=== PATIENT | male | born 1975 | race Caucasian/White ===

== ENCOUNTER 2023-11-09 12:04 | Emergency (ER) | payer BC, SELFPAY ==
[2023-11-09] VITALS (12 sets, daily range): BP systolic 135–149; BP diastolic 98–102; PULSE 84–103; RESP 15–19; TEMP 36.6; O2SAT 96–100
--- NOTE | ~2023-11-09 | XR_ITS ---
Clinical Indication: Hypertension PA and lateral views of the chest: Comparison: None Findings: The lungs are clear, without evidence of focal consolidation or pleural effusion. Cardiome diastinal silhouette is within normal limits. Bones and soft tissues are unremarkable. Impression: Normal chest. Reviewed, dictated and finalized at location . MANAGER Impression: Normal chest.
--- NOTE | 2023-11-09 12:07 | ECG_ITS ---
Measurements Intervals [place] Rate: 103 P: 53 LA: 141 QRS: 82 QRSD: 79 T: 2 QT: 300 QTc: 394 Interpretive Statements SINUS TACHYCARDIA POSSIBLE LEFT ATRIAL ENLARGEMENT NONSPECIFIC ST-T WAVE ABNORMALITY- INFERIOR LEADS BORDERLINE ECG NO PREVIOUS ECG AVAILABLE FOR COMPARISON Electronically Signed On 11-09-2023 12:12:59 CHAMBER MAGISTRATE by Yon Zuluaga D.O.
[2023-11-09 12:29] LABS: Basophils Absolute Auto 0.1 K/mm3 (0.0-0.1); Basophils Percent Auto 0.6 % (0.2-1.2); Eosinophils Absolute Auto 0.1 K/mm3 (0-0.3); Hematocrit 48.3 % (42.0-52.0); Hemoglobin 14.7 g/dL (14.0-18.0); Immature Granulocyte Absolute 0.05 K/mm3 (0.00-0.031); Immature Granulocyte Percent A 0.6 % (0-0.5); Lymphocytes Absolute Auto 1.46 K/mm3 (0.9-3.2); Lymphocytes Percent Auto 16.1 % (18.3-44.2); Mean Corpuscular HGB Conc 30.4 g/dl (32-36); Mean Corpuscular Hemoglobin 24.6 pg (26-34); Mean Corpuscular Volume 80.9 fl (80-100); Mean Platelet Volume 8.3 fl (7.4-10.4); Monocytes Absolute Auto 0.9 K/mm3 (0.1-0.6); Monocytes Percent Auto 9.7 % (2.6-8.5); Neutrophils Absolute Auto 6.5 K/mm3 (1.3-6.7); Platelet Count Result 577 k/mm3 (150-375); Red Blood Count 5.97 M/mm3 (4.6-6.20); Red Cell Distribution Width 19.1 % (11.5-14.5); White Blood Count 9.1 K/mm3 (4.5-10.0)
[2023-11-09 12:39] LABS: INR 0.9; Prothrombin Time 12.7 Seconds (11.1-14.7)
[2023-11-09 12:40] LABS: Partial Thromboplastin Time 23.6 SECONDS (22.3-36.8)
[2023-11-09 12:41] LABS: Alanine Aminotransferase 47 U/L (6-50); Albumin Level 4.4 g/dL (3.5-5.1); Alkaline Phosphatase 51 U/L (38-126); Anion Gap 7 mmol/L (8-16); Aspartate Amino Transferase 57 U/L (17-59); Bilirubin,Total 0.4 mg/dL (0.2-1.3); Blood Urea Nitrogen 15 mg/dL (9-20); Calcium 9.6 mg/dL (8.4-10.2); Carbon Dioxide 25 mmol/L (22-30); Chloride 107 mmol/L (98-107); Estimated Glomerular Filt Rate > 60; Glucose 106 mg/dL (65-110); Lipase 239 U/L (23-300); Potassium 4.3 mmol/L (3.4-5.0); Sodium 139 mmol/L (137-145)
[2023-11-09 12:52] LABS: Troponin I < 0.012 ng/mL (0.000-0.034)
--- NOTE | 2023-11-09 14:07 | ED.CHESTPAIN ---
HPI - Chest Pain General Chief Complaint: Chest Pain <Esteban BobbyJOSEPH - Last Filed: 11/09/23 14:12> Stated Complaint: Chest pain <Esteban BobbyJOSEPH - Last Filed: 11/09/23 14:12> Time Seen by Provider: 11/09/23 14:00 <Esteban BobbyJOSEPH - Last Filed: 11/09/23 14:12> Focused HPI: Esteban is a 48-year-old male patient presenting to the ER today with complaints of intermittent chest pain, high blood pressure, high heart rate, and dyspnea when going up steps today at the gym. He reports that he has been on propanolol before for his elevated heart rate and high blood pressure and this made him feel like a zombie and he cannot get off the couch. He scheduled himself an appointment at [facility] to see a director of music and that is scheduled for Monday of next week. General: Well-developed, well nourished, in no apparent distress Head: Normocephalic, atraumatic. Cardio: Regular rate and rhythm, s1 and s2 normal, no murmur appreciated. Resp: Clear to auscultation bilaterally, no rhonchi, rales, wheezing or rubs. Extremities: No deformity, no edema, no cyanosis, capillary refill less than 2 seconds, peripheral pulses palpable and strong. Integumentary: [place], warm, and dry, intact without lesion, no rashes. Patient screened in triage and cardiac workup initial orders placed. Additional care and disposition to be based upon diagnostic testing and treatment. <Esteban BarrnaomialeksJOSEPH - Last Filed: 11/09/23 14:12> History of Present Illness HPI narrative: Patient is a 48-year-old male here with chest pain, tachycardia, high blood pressure. Patient states that he has been experiencing elevated blood pressures and elevated heart rates over the last year. His resting heart rate is usually about 100. He was previously placed on propranolol but discontinued this due to it making him feel groggy. He notes that he has been having intermittent chest pains which are located in his mid chest as well as his epigastrium. He has discussed this with his primary care doctor and he has made a appointment with a director of music at [facility] for next Monday. Today he was walking up the stairs to go to the gym and started experiencing chest pain, lightheadedness and his epigastric abdominal pains. He now states that he has had complete symptom resolution. He denies prior cardiac history aside from his tachycardia. He does have a significant family history of colon cancer in multiple family members. He has had 9 screening colonoscopies which just showed some benign polyps. He has never had an upper endoscopy. <Jennifer Trivedi MD - Last Filed: 11/09/23 16:52> Related Data Allergies/Adverse Reactions: Allergies Allergy/AdvReac Type Severity Reaction Status Date / Time No Known Allergies Allergy Verified 11/09/23 14:00 <Esteban Bobby APRN - Last Filed: 11/09/23 14:12> Review of Systems Review of Systems: All systems reviewed & are unremarkable except as noted in HPI and below <Jennifer Trivedi MD - Last Filed: 11/09/23 16:52> Exam Narrative: GENERAL: Well-appearing, well-nourished, and in no acute distress. HEAD: Normocephalic, atraumatic. EYES: PERRLA and EOMI. ENT: Nares clear. Mucous membranes moist. NECK: Supple. CHEST: Clear to auscultation. No respiratory distress. HEART: Tachycardia. Normal peripheral pulses. ABDOMEN: Soft, nontender, nondistended. EXTREMITIES: Normal range of motion. No edema. SKIN: Warm, dry, no rash. NEURO: No focal deficits. Alert and oriented x3. PSYCH: Normal mood and affect. <Jennifer Trivedi MD - Last Filed: 11/09/23 16:52> Course Course Emergency Course: MSE performed in triage my mid-level. Chart reviewed at 2:47 p.m. by myself. Patient here for elevated blood pressure, elevated heart rate and intermittent chest pain. Triage vitals show mild tachycardia, mild hypertension, normal oxygen saturation. Per triage note he is reportedly gaudencio
[2023-11-09] MEDS: ASPIRIN 81 MG CHEWABLE TABLET 324 MG PO (14:35)
[2023-11-09 14:43] LABS: D Dimer 0.33 ug/mL (<0.48)
[2023-11-09 15:44] LABS: Troponin I < 0.012 ng/mL (0.000-0.034)
== END 2023-11-09 16:56 | disposition home or self-care (01) ==
PROVIDERS: Student in an Organized Health Care Education/Training Program; Emergency Provider Student in an Organized Health Care Education/Training Program
DX: R07.89 Other chest pain (principal); R03.0 Elevated blood-pressure reading, without diagnosis of hypertension; R00.0 Tachycardia, unspecified
CPT/HCPCS: 36415; 71046; 80053; 83690; 84484; 85025; 85380; 85610; 85730; 93005; 99284; A9270